=== PATIENT | male | born 1995 | race Caucasian/White ===

== ENCOUNTER 2017-08-02 15:36 | Emergency (ER) | payer OTHER ==
[~2017-08-02] VITALS: Ht 182.9 cm; Wt 95.3 kg
[2017-08-02] MEDS ORDERED: BENZOIN COMPOUND TINCT 60 ML BOTTLE ONE (16:01)
--- NOTE | 2017-08-02 16:25 | NUR ---
STERI-STRIPS AND FINGER SPLINT APPLIED BY JENNIFER RASMUSSEN.
--- NOTE | 2017-08-02 16:30 | NUR ---
Patient discharged to home in stable condition. Written and verbal after care instructions given. Patient verbalizes understanding of instruction. PT AMBULATED OUT WITH A STEADY GAIT. VSS.
[2017-08-02 16:38] VITALS: BP 125/71
== END 2017-08-02 16:30 | disposition home or self-care (01) ==
LOC: ER 15:42
DX: S61.213A Laceration without foreign body of left middle finger without damage to nail, initial encounter (principal); J45.909 Unspecified asthma, uncomplicated; W26.8XXA Contact with other sharp object(s), not elsewhere classified, initial encounter; Y93.89 Activity, other specified; Y92.89 Other specified places as the place of occurrence of the external cause; Y99.8 Other external cause status
CPT/HCPCS: 29130; 99283; A4606; Z7610